=== PATIENT | female | born 1950 | race Caucasian/White ===

== ENCOUNTER → 2016-10-17 | Outpatient (CLI) | payer OTHER ==
--- NOTE | 2016-10-17 23:00 | US ---
Transabdominal and Transvaginal Pelvic Ultrasound History: 66-year-old with left adnexal mass, history of metastatic colon cancer. Comparison: Pelvic ultrasound July 04, 2016. Findings: Transabdominal: The uterus is poorly visualized. The bladder is normal. Transvaginal: The retroverted uterus measures 5.7 x 3.9 x 2.5 cm. An echogenic structure in the endom etrium measuring 6 x 3 x 4 mm suggesting a polyp previously measured 8 x 5 x 5 mm. There is minimal f luid in the neutral cavity adjacent to the structure. And a complex mixed cystic and solid septated l eft adnexal mass is again noted, measuring 8.6 x 7.6 x 5.5 cm, previously 8.9 x 7.9 by 5. centimeters in The right ovary measures 1.6 x 0.8 x 1.3 cm. No adnexal masses are identified. Normal arterial b lood flow is documented to the ovaries by Doppler ultrasound. There is a small volume of free fluid. Impression: 1. No significant change in size of a suspicious complex left adnexal mass. Malignancy cannot be excl uded. 2. Minimal decrease in size of a possible endometrial polyp. Message left today at 1252 hours.
== END ==
LOC: BRMIMAGING 11:04
DX: R19.09 Other intra-abdominal and pelvic swelling, mass and lump (principal); Z85.038 Personal history of other malignant neoplasm of large intestine
CPT/HCPCS: 76856-PO

== ENCOUNTER 2016-11-02 02:09 | Inpatient (IN) | payer OTHER ==
--- NOTE | 2016-11-02 02:25 | EDPHY ---
HPI/HX/ROS/PE/MDM Narrative: Chief complaint: Abdominal pain, nausea and vomiting HPI: 66-year-old woman with a past medical history of colon cancer, 1st diagnosed in August 2014. She had her tumor resected that time and had chemotherapy. The cancer return within a month. She has been on chemotherapy since that time. She is currently under the care of Dr. Isbell [facility]. Last chemo was a week ago. She does have a pump that delivers 5 FU of until last Monday. Yesterday evening at about 7 o'clock in the evening she started developing abdominal pain with some nausea and vomiting. Patient states she never gets pain nausea or vomiting associated with her symptoms. Denies any fevers or chills. No chest pain or shortness of breath. No hematemesis. She has had several episodes of vomiting here. She did state that she had a bowel movement of diarrhea about an hour ago. She does have chronic diarrhea with her chemotherapy. ROS: 10 point Review of Systems is negative except as noted in the HPI. Physical exam: Gen: Awake, Alert, No Distress HEENT: Nose: no rhinorrhea Eyes: PERRLA, EOMI Mouth: Moist mucosa Neck: Supple, no JVD Chest: nontender, lungs clear to auscultation Heart: S1, S2 normal, no murmur Abd: Soft, bowel sounds are hypoactive, diffuse left lower and right-sided abdominal tenderness., no guarding, large laparotomy scar Back: no CVA tenderness, no midline tenderness Ext: no edema, non-tender Skin: no rash Neuro: CN II-XII intact, Sensation grossly intact, Strength 5/5 in bilateral upper and lower extremities ED Course: CT scan of the abdomen pelvis with IV contrast as interpreted by Dr. Ozzie West, there is ascites, there is multiple hepatic lesions, hydropic gallbladder, there is what appears to be mucinous tumors in the pelvis. There is a dilated proximal duodenum just before the SMA and the aorta with decompressed distally consistent with a non high-grade bowel obstruction. Patient is noted to be hypertensive. She has been given IV analgesia and antiemetics with some improvement. Patient states that she-has a blood pressure that waxes and wanes and this is not uncommon. CT results noted. Blood work noted. I have discussed with , hospitalist. She will admit to her service for further evaluation. I have also discussed with Dr. Preciado, general surgery who will be happy to consult on the case. NG tube has been ordered. MDM: 66-year-old woman currently being treated for stage IV colon cancer presenting with abdominal pain nausea vomiting which is very atypical for her. She has significant risk factors for possible bowel obstruction. Will do blood work, CT scan of abdomen pelvis with IV contrast, antiemetics, fluids, and analgesia. - Data Points Laboratory Results: Laboratory Results 11/02/16 02:30 11/02/16 02:30 11/02/16 11/02/16 03:39 02:30 WBC 4.24 10^3/uL (3.80-9.50) RBC 4.33 10^6/uL (4.18-5.33) Hgb 14.0 g/dL (12.6-16.3) Hct 41.3 % (38.0-47.0) MCV 95.4 fL (81.5-99.8) MCH 32.3 pg (27.9-34.1) MCHC 33.9 g/dL (32.4-36.7) RDW 13.1 % (11.5-15.2) Plt Count 125 L 10^3/uL (150-400) MPV 9.3 fL (8.7-11.7) Neut % (Auto) 73.1 % (39.3-74.2) Lymph % (Auto) 19.6 % (15.0-45.0) [place] % (Auto) 3.5 L % (4.5-13.0) Eos % (Auto) 1.9 % (0.6-7.6) Baso % (Auto) 0.7 % (0.3-1.7) Nucleat RBC Rel Count 0.0 % (0.0-0.2) Absolute Neuts (auto) 3.10 10^3/uL (1.70-6.50) Absolute Lymphs (auto) 0.83 L 10^3/uL (1.00-3.00) Absolute Monos (auto) 0.15 L 10^3/uL (0.30-0.80) Absolute Eos (auto) 0.08 10^3/uL (0.03-0.40) Absolute Basos (auto) 0.03 10^3/uL (0.02-0.10) Absolute Nucleated RBC 0.00 10^3/uL (0-0.01) Immature Gran % 1.2 H % (0.0-1.1) Immature Gran # 0.05 10^3/uL (0.00-0.10) Sodium 142 mEq/L (134-144) Potassium 3.6 mEq/L (3.5-5.2) Chloride 111 H mEq/L (97-110) Carbon Dioxide 25 mEq/l (22-31) Anion Gap 6 mEq/L (8-16) BUN 14 mg/dL (7-23) Creatinine 1.1 H mg/dL (0.6-1.0) Estimated GFR 50 Glucose 125 H mg/dL (70-100) Calcium 8.7 mg/dL (8.5-10.4) Total Bilirubin 1.0 mg/dL (0.1-1.4) Conjugated Bilirubin 0.3 mg/dL (0.0-0.5) Unconjugated Bilirubin 0.7 mg/dL (0.0-1.1) AST 42 IU/L (14-46) ALT 87 H IU/L (9-52) Alkaline Phosphatase 104 IU/L (38-126) Total Protein 5.6 L g/dL (6.3-8.2) Albumin 3.2 L g/dL (3.5-5.0) Lipase 55.0 IU/L (23-300) Urine Color Pending Urine Appearance Pending Urine pH Pending Ur Specific [place] Pending Urine Protein Pending Urine Ketones Pending Urine Blood Pending Urine Nitrate Pending Urine Bilirubin Pending Urine Urobilinogen Pending Ur Leukocyte Esterase Pending Urine Glucose Pending Medications Given: Discontinued Medications Sodium Chloride (Ns) 1,000 mls @ 0 mls/hr IV ONCE ONE PRN Reason: Wide Open Stop: 11/02/16 02:38 Last Admin: 11/02/16 02:51 Dose: 1,000 mls Morphine Sulfate (Morphine) 4 mg IVP ONCE ONE Stop: 11/02/16 02:38 Last Admin: 11/02/16 02:51 Dose: 4 mg Ondansetron HCl (Zofran) 4 mg IVP EDNOW ONE Stop: 11/02/16 02:38 Last Admin: 11/02/16 02:51 Dose: 4 mg General Initial Vital Signs: Initial Vital Signs Temperature (C) 36.8 C 11/02/16 02:15 Heart Rate 75 11/02/16 02:15 Respiratory Rate 20 11/02/16 02:15 Blood Pressure 218/127 H 11/02/16 02:15 O2 Sat (%) 96 11/02/16 02:15 O2 Delivery Mode Room Air Allergies/Adverse Reactions: No Known Allergies Allergy (Unverified 11/02/16 02:13) Home Medications: Medication Instructions Recorded Gabapentin 11/02/16 Lisinopril 11/02/16 Potassium 11/02/16 Departure - Departure Disposition: [facility] Inpatient Acute Clinical Impression: Intestinal obstruction Condition: Fair
[2016-11-02] MEDS ORDERED: NS 1,000 ML IV ONE (02:37)
[2016-11-02] MEDS ORDERED: ONDANSETRON 4 MG/2 ML VIAL IVP ONE (02:37)
[2016-11-02 02:43] LABS: % IMMATURE GRANULYOCYTES 1.2 % (0.0-1.1); ABSOLUTE IMMATURE GRANULOCYTES 0.05 10^3/uL (0.00-0.10); ADD DIFF? NO; ADD MORPH? NO; ADD SCAN? NO; ATYPICAL LYMPHOCYTE FLAG 0 (0-99); FRAGMENT RBC FLAG 0 (0-99); HEMATOCRIT 41.3 % (38.0-47.0); LEFT SHIFT FLG 20 (0-99); LIPEMIA HEMOLYSIS FLAG 90 (0-99); MEAN CELL HEMOGLOBIN 32.3 pg (27.9-34.1); MEAN CELL HEMOGLOBIN CONCENTR. 33.9 g/dL (32.4-36.7); MEAN CELL VOLUME 95.4 fL (81.5-99.8); MEAN PLATELET VOLUME 9.3 fL (8.7-11.7); PLATELET CLUMPS FLAG 20 (0-99); PLATELET COUNT 125 10^3/uL (150-400); RED BLOOD CELL COUNT 4.33 10^6/uL (4.18-5.33); RED CELL DISTRIBUTION WIDTH 13.1 % (11.5-15.2)
[2016-11-02] MEDS ORDERED: IOPAMIDOL (ISOVUE-300) 100 ML BTL IV ONE (02:46)
[2016-11-02 02:50] LABS: ALANINE AMINOTRANSFERASE 87 IU/L (9-52); ALBUMIN 3.2 g/dL (3.5-5.0); ALKALINE PHOSPHATASE 104 IU/L (38-126); ANION GAP 6 mEq/L (8-16); ASPARTATE AMINOTRANSFERASE 42 IU/L (14-46); BILIRUBIN-CONJUGATED 0.3 mg/dL (0.0-0.5); BILIRUBIN-UNCONJUGATED 0.7 mg/dL (0.0-1.1); CALCIUM 8.7 mg/dL (8.5-10.4); CARBON DIOXIDE 25 mEq/l (22-31); CHLORIDE 111 mEq/L (97-110); CREATININE 1.1 mg/dL (0.6-1.0); GLOMERULAR FILTRATION RATE 50; GLUCOSE 125 mg/dL (70-100); POTASSIUM 3.6 mEq/L (3.5-5.2); SODIUM 142 mEq/L (134-144); TOTAL PROTEIN 5.6 g/dL (6.3-8.2)
[2016-11-02] MEDS ORDERED: LIDOCAINE 2% JELLY 20 ML (UROJECT) ONE (03:48)
[2016-11-02] MEDS ORDERED: BENZOCAINE UNIT DOSE SPRAY HURRICAINE MM ONE ×2 (03:48→04:00)
[2016-11-02 03:58] LABS: COLOR PALE YELLOW; LEUKOCYTE ESTERASE,URINE NEGATIVE (NEGATIVE); NITRITE,URINE NEGATIVE (NEGATIVE)
[2016-11-02 04:06] LABS: MUCUS TRACE /lpf (NONE-1+)
[2016-11-02] MEDS ORDERED: ONDANSETRON 4 MG/2 ML VIAL IVP PRN (04:21)
[2016-11-02] MEDS ORDERED: HYDROmorphONE/DILAUDID 1 MG/ML SYR IVP PRN (04:21)
[2016-11-02] MEDS ORDERED: ONDANSETRON DISINTEGRATING 4 MG TAB PO PRN (04:21)
[2016-11-02] MEDS ORDERED: LORazepam 2 MG/ML INJ IVP PRN (04:21)
[2016-11-02] MEDS ORDERED: HYDROCODONE/APAP 5/325 TAB PO PRN (04:21)
[2016-11-02] MEDS ORDERED: NS 1,000 ML IV SCH (04:30)
--- NOTE | 2016-11-02 05:08 | PDGENHP ---
History and Physical - Chief Complaint abdominal pain, n/v - History of Present Illness Patient is a 66-year-old female with history of stage IV adenocarcinoma of the colon and hypertension who presents to the ED complaining of abdominal pain nausea vomiting. Patient states symptoms started with moderately severe epigastric pain at around 7:00 p.m. She also began developing nausea who had several episodes of vomiting initially nonbilious /nonbloody, but after several episodes (>6) she also noticed streaks of bright red blood in the vomitus. Patient recently completed her scheduled chemotherapy infusion session on 10/28 and reports she never previously had a n/v reaction to chemotherapy, she usually experiences moderate/severe diarrhea (>7 BMs daily) for the first week after completion of the infusion. She does report having several BMs throughout the day, most recently an hour prior to presentation to the ED. She denies any other symptoms, denies associated fevers/chills, cough, shortness of breath, chest pain, palpitations or urinary symptoms. On arrival to the ED, patient was afebrile, but significantly hypertensive, actively vomiting (nonbloody). Labs were largely unremarkable, mildly elevated creatinine. CT abd/pelvis was obtained and revealed dilated small bowel with suspected partial bowel obstruction. She was given pain control, NGT was placed and she was admitted to the hospitalist service for further management. History Information - Allergies/Home Medication List Allergies/Adverse Reactions: No Known Allergies Allergy (Unverified 11/02/16 02:13) Home Medications: Gabapentin 11/02/16 [Last Taken Unknown] Lisinopril 11/02/16 [Last Taken Unknown] Potassium 11/02/16 [Last Taken Unknown] I have personally reviewed and updated: family history, medical history, social history, surgical history - Past Medical History Additional medical history: adenocarcinoma of the colon, stage IV s/p partial bowel resection and multiple varied chemotherapy regimens, most recently 5-FU (? ) infusions q3 weeks. HTN - Surgical History Additional surgical history: partial large colon resection. several ex-laps, once for intraabdominal chemotherapy - Family History Additional family history: F: CAD, brain aneurysm - Social History Smoking Status: Never smoked Alcohol Use: None Drug Use: None Additional social history: Patient lives with her son and daughter in law. Is independent in all ADLs. Review of Systems ROS: 10pt was reviewed & negative except for what was stated in HPI & below Physical Exam Temp Pulse Resp BP Pulse Ox 36.8 C 73 16 208/108 H 93 11/02/16 02:15 11/02/16 03:15 11/02/16 03:15 11/02/16 03:15 11/02/16 03:15 Constitutional: no apparent distress, not in pain, chronically ill appearing Eyes: PERRL, anicteric sclera, EOMI Ears, Nose, Mouth, Throat: hearing normal, ears appear normal, no oral mucosal ulcers, dry mucous membranes Cardiovascular: regular rate and rhythym, no murmur, rub, or gallop, pulses symmetric bilaterally, No JVD, No edema Peripheral Pulses: 2+: dorsalis-pedis (R), dorsalis-pedis (L) Respiratory: no respiratory distress, no rales or rhonchi, clear to auscultation Gastrointestinal: normoactive bowel sounds, soft, non-tender abdomen, no palpable masses, distension (mildly distended; old surgical incision scars) Genitourinary: no bladder fullness, no bladder tenderness Skin: warm, normal color, no rashes or abrasions, no fluctuance, No mottled Musculoskeletal: full muscle strength, no muscle tenderness, normal joint ROM, no joint effusions Neurologic: AAOx3, sensation intact bilaterally, CN II-XII Intact, No weakness, No numbness Psychiatric: interacting appropriately, not anxious, not encephalopathic, thought process linear Lab Data & Imaging Review 11/02/16 02:30 11/02/16 02:30 WBC 4.24 10^3/uL (3.80-9.50) 11/02/16 02:30 RBC 4.33 10^6/uL (4.18-5.33) 11/02/16 02:30 Hgb 14.0 g/dL (12.6-16.3) 11/02/16 02:30 Hct 41.3 % (38.0-47.0) 11/02/16 02:30 MCV 95.4 fL (81.5-99.8) 11/02/16 02:30 MCH 32.3 pg (27.9-34.1) 11/02/16 02:30 MCHC 33.9 g/dL (32.4-36.7) 11/02/16 02:30 RDW 13.1 % (11.5-15.2) 11/02/16 02:30 Plt Count 125 10^3/uL (150-400) L 11/02/16 02:30 MPV 9.3 fL (8.7-11.7) 11/02/16 02:30 Neut % (Auto) 73.1 % (39.3-74.2) 11/02/16 02:30 Lymph % (Auto) 19.6 % (15.0-45.0) 11/02/16 02:30 [place] % (Auto) 3.5 % (4.5-13.0) L 11/02/16 02:30 Eos % (Auto) 1.9 % (0.6-7.6) 11/02/16 02:30 Baso % (Auto) 0.7 % (0.3-1.7) 11/02/16 02:30 Nucleat RBC Rel Count 0.0 % (0.0-0.2) 11/02/16 02:30 Absolute Neuts (auto) 3.10 10^3/uL (1.70-6.50) 11/02/16 02:30 Absolute Lymphs (auto) 0.83 10^3/uL (1.00-3.00) L 11/02/16 02:30 Absolute Monos (auto) 0.15 10^3/uL (0.30-0.80) L 11/02/16 02:30 Absolute Eos (auto) 0.08 10^3/uL (0.03-0.40) 11/02/16 02:30 Absolute Basos (auto) 0.03 10^3/uL (0.02-0.10) 11/02/16 02:30 Absolute Nucleated RBC 0.00 10^3/uL (0-0.01) 11/02/16 02:30 Immature Gran % 1.2 % (0.0-1.1) H 11/02/16 02:30 Immature Gran # 0.05 10^3/uL (0.00-0.10) 11/02/16 02:30 Sodium 142 mEq/L (134-144) 11/02/16 02:30 Potassium 3.6 mEq/L (3.5-5.2) 11/02/16 02:30 Chloride 111 mEq/L (97-110) H 11/02/16 02:30 Carbon Dioxide 25 mEq/l (22-31) 11/02/16 02:30 Anion Gap 6 mEq/L (8-16) 11/02/16 02:30 BUN 14 mg/dL (7-23) 11/02/16 02:30 Creatinine 1.1 mg/dL (0.6-1.0) H 11/02/16 02:30 Estimated GFR 50 11/02/16 02:30 Glucose 125 mg/dL (70-100) H 11/02/16 02:30 Calcium 8.7 mg/dL (8.5-10.4) 11/02/16 02:30 Total Bilirubin 1.0 mg/dL (0.1-1.4) 11/02/16 02:30 Conjugated Bilirubin 0.3 mg/dL (0.0-0.5) 11/02/16 02:30 Unconjugated Bilirubin 0.7 mg/dL (0.0-1.1) 11/02/16 02:30 AST 42 IU/L (14-46) 11/02/16 02:30 ALT 87 IU/L (9-52) H 11/02/16 02:30 Alkaline Phosphatase 104 IU/L (38-126) 11/02/16 02:30 Total Protein 5.6 g/dL (6.3-8.2) L 11/02/16 02:30 Albumin 3.2 g/dL (3.5-5.0) L 11/02/16 02:30 Lipase 55.0 IU/L (23-300) 11/02/16 02:30 Urine Color PALE YELLOW 11/02/16 03:39 Urine Appearance CLEAR 11/02/16 03:39 Urine pH 5.0 (5.0-7.5) 11/02/16 03:39 Ur Specific [place] 1.019 (1.002-1.030) 11/02/16 03:39 Urine Protein 2+ (NEGATIVE) H 11/02/16 03:39 Urine Ketones NEGATIVE (NEGATIVE) 11/02/16 03:39 Urine Blood 1+ (NEGATIVE) H 11/02/16 03:39 Urine Nitrate NEGATIVE (NEGATIVE) 11/02/16 03:39 Urine Bilirubin NEGATIVE (NEGATIVE) 11/02/16 03:39 Urine Urobilinogen NEGATIVE EU (0.2-1.0) 11/02/16 03:39 Ur Leukocyte Esterase NEGATIVE (NEGATIVE) 11/02/16 03:39 Urine RBC 1-3 /hpf (0-3) 11/02/16 03:39 Urine WBC 1-3 /hpf (0-3) 11/02/16 03:39 Ur Epithelial Cells TRACE /lpf (NONE-1+) 11/02/16 03:39 Urine Mucus TRACE /lpf (NONE-1+) 11/02/16 03:39 Urine Glucose 1+ (NEGATIVE) H 11/02/16 03:39 Visualized and Interpreted imaging results: Yes Interpretation: CT abd/pelvis: dilated loops of small bowel, consistent with partial bowel obstruction; ascites, contracted GB Assessment & Plan Assessment: Patient is a 66-year-old female with history of stage IV colon CA currently undergoing chemotherapy presents with symptoms of epigastric abdominal pain, nausea and vomiting. ED workup reveals acute partial bowel obstruction. Plan: # nausea/vomiting/abdominal pain Likely related to CT findings of partial bowel obstruction. LFTs and lipase were largely within normal limits, CT does not reveal any GB pathology. Patient also has chronic diarrhea related to her chemotherapy regimen and had a BM just prior to arrival to the ED, indicating complete obstruction is unlikely. Will continue symptomatic treatment, NGT decompression and f/u surgery consult. # Hypertensive urgency Patient reports recent labile hypertensive episodes. On arrival to the ED, patient was in a significant amount of pain and vomiting, which likely exacerbated her HTN. Will attempt to control her abdominal symptoms, confirm her home meds and give hydralazine prn. # thrombocytopenia Plts 125 on presentation. She did report one episode of bright red blood in her vomitus prior to arrival, however, has not had any recurrence of this. Will place on PPI and monitor plts, h/h. # dispo: admit to inpatient service for likely > 2 [place] stay for management of partial bowel obstruction Gen: NPO DVT ppx: SCDs Full code
[2016-11-02] MEDS: hydrALAZINE 20 MG/ML VIAL IVP PRN (05:52)
[2016-11-02] MEDS: amLODIPine BESYLATE 5 MG TAB PO SCH ×2 (06:46→08:38)
--- NOTE | 2016-11-02 08:30 | CT ---
CT Abdomen and Pelvis With Intravenous Contrast Reason for Examination: Abdominal pain and symptomatology suggestive of bowel obstruction in a 66-year-old female with a history of metastatic colon cancer. Technique: A spiral acquisition was performed through the abdomen and pelvis following intravenous administration of 80 mL of Isovue-300. Axial images are obtained at 5 mm intervals with reformations performed at 1.5 mm thickness. Sagittal and coronal reformations are performed and the examination is reviewed on the workstation at multiple window and level settings. Dose reduction techniques are employed. Findings: Abdomen: The lung bases are clear. Multiple scattered low-attenuation areas are noted within the liver which are too small to fully characterize. Comparison with previous CTs, presumably performed at [facility], would be helpful for further characterization of these indeterminate lesions. There is early intrahepatic biliary ductal dilatation. The gallbladder is hydropic measuring 9 cm in dimension. A single gallstone is seen within the lumen of the gallbladder. The kidneys perfuse symmetrically. A simple cyst is seen in the mid pole of the right kidney. There is no obstructive uropathy. Upper abdominal ascites is seen. The spleen appears normal. The duodenum is dilated to the level where it passes between the aorta and the superior mesenteric artery suggesting an element of external compression. Additionally, there is dilatation of the colon throughout the abdomen and into the upper pelvis. There is a small anterior abdominal wall hernia containing intraabdominal fat. Pelvis: There is heterogeneous attenuation as well as ascites in the pelvis. Rounded areas of heterogeneous attenuation and rim enhancement are seen in the pelvis, one measuring 6 x 5 cm and other smaller masses seen consistent with metastatic implants. This would correlate with findings on pelvic ultrasound from October 17, 2016. These pelvic masses may result in an element of compression on the sigmoid colon and produce a partial bowel obstruction. No free air is seen. No aggressive osseous lesions are seen. Impression: 1. 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 Comparison with previous studies from [facility] will be obtained and an addendum report issued. 2. Indeterminate hepatic lesions. 3. Early intrahepatic biliary ductal dilatation in association with a hydropic gallbladder. 4. Ascites. 5. See above report for additional findings. A preliminary report was called to the Emergency Department at 0335 hours. The final interpretation is concordant withe preliminary reading. POS99 MTDD
[2016-11-02] MEDS: PANTOPRAZOLE SODIUM 40 MG in NS 100 ML IV SCH ×2 (08:38→20:52)
--- NOTE | 2016-11-02 10:57 | GCON ---
[f rep st] CONSULTATION DATE OF CONSULTATION: 11/02/2016 CHIEF COMPLAINT: Small bowel obstruction. REQUESTING PHYSICIAN: Dr. Severo Hsieh. HISTORY OF PRESENT ILLNESS: Noemi Shah is a 66-year-old woman, who has been diagnosed with stage IV colon cancer. She originally had 2 surgeries in [place]. She has been on chemotherapy at [facility] under the treatment of Dr. Isbell. She is on Irinotecan and is also on a pump. She developed abdominal pain around 7:00 p.m. on November 01, 2016, and then had nonbilious emesis. She does not usually experience nausea and vomiting with her chemotherapy agents. She does not have any sick contacts. A CT scan was obtained in the ED which showed an enlarged gallbladder, dilated duodenum as well as a dilated colon. An NG was placed with return. PAST MEDICAL HISTORY: Hypertension, colon cancer. PAST SURGICAL HISTORY: Two surgeries performed in [place] including a colectomy. FAMILY HISTORY: Significant for coronary artery disease and brain aneurysm. SOCIAL HISTORY: She lives with her son and [id number]. She denies tobacco , alcohol or illegal drug use. REVIEW OF SYSTEMS: Nausea, vomiting. Around chemotherapy, she usually has looser bowel movements. She does have some pain with talking at present. Otherwise, 10 point review of systems negative. PHYSICAL EXAMINATION: 36.6, 96, 205/117, 14, 96% room air. GENERAL: A pleasant, thin woman, sitting up in bed. Appears slightly weak. HEENT: NG tube in left naris with blood around the tape. There is clear fluid in the canister. Normocephalic. No gross hearing deficits. Mucous membranes dry. Pupils equal and round. LUNGS: Clear to auscultation bilaterally. No increased work of breathing. ABDOMEN: Bowel sounds are present. She is soft. She is mildly tender. She has a large well-healed midline scar. MUSCULOSKELETAL: Normal nails. Results reviewed. Per HPI. IMPRESSION AND PLAN: Noemi Shah is a 66-year-old woman with stage IV colon cancer. She reports that 2 weeks ago, her scan was improving. She is admitted for abdominal pain, nausea, vomiting. She was passing gas earlier today, but is not sure if she has passed any since 1:00 a.m. Her abdomen is soft, and she is currently feeling better. Her liver function tests are normal, In terms of her enlarged gallbladder, I think that is fine to observe that for now. She does have a dilated duodenum with possible constriction by the SMA. I am hopeful that she does not have SMA syndrome and this is more prominent due to her illness. Her colon has a lot of stool in it and there is a dilatation proximally. At this point, I think it is appropriate for hydration, getting her blood pressure under control, and doing serial abdominal exams. If her clinical course worsens, then she may need to go to the operating room. However , at this point, I am hopeful that she will be able to avoid this. /[id number]/MODL MTDD
[2016-11-02] MEDS: ACETAMINOPHEN 325 MG TAB PO PRN ×2 (15:03→23:03)
--- NOTE | 2016-11-02 15:21 | HOSPPROG ---
Hospitalist Progress Note Assessment/Plan: Patient is a 66-year-old female with history of stage IV colon CA currently undergoing chemotherapy presents with symptoms of epigastric abdominal pain, nausea and vomiting. ED workup reveals acute partial bowel obstruction. Plan: # nausea/vomiting/abdominal pain -surgery consult reviewed -cont conservative treatment # Hypertensive urgency (improving) -cont home meds by mouth -cont hydralazine prn as ordered #mild HOLLINS -monitor and control BP # thrombocytopenia Plts 125 on presentation. She did report one episode of bright red blood in her vomitus prior to arrival, however, has not had any recurrence of this. Will place on PPI and monitor plts, h/h. # dispo: admit to inpatient service for likely > 2 [place] stay for management of partial bowel obstruction Gen: NPO DVT ppx: SCDs Full code Subjective: improved abd pain. no chest pain. mild 3/10 headache Objective: Vital Signs Temp Pulse Resp BP Pulse Ox 36.8 C 85 16 170/101 H 96 11/02/16 14:57 11/02/16 14:57 11/02/16 14:57 11/02/16 14:57 11/02/16 14:57 11/01/16 11/02/16 11/03/16 05:59 05:59 05:59 Intake Total 1150 Output Total 25 600 Balance 1125 -600 ICD10 Worksheet Patient Problems: Problems Problem Status Diagnosed Bowel obstruction Acute
[2016-11-03] MEDS: hydrALAZINE 20 MG/ML VIAL IVP PRN (06:36)
[2016-11-03 07:56] VITALS: RESP 18
[2016-11-03] MEDS: amLODIPine BESYLATE 5 MG TAB PO SCH (09:41)
[2016-11-03] MEDS: LISINOPRIL 5 MG TAB PO SCH (09:41)
[2016-11-03] MEDS: PANTOPRAZOLE SODIUM 40 MG in NS 100 ML IV SCH ×2 (09:42→21:09)
[2016-11-03] MEDS: ACETAMINOPHEN 325 MG TAB PO PRN ×2 (10:46→23:11)
--- NOTE | 2016-11-03 10:52 | GCON ---
[f rep st] CONSULTATION ONCOLOGY CONSULTATION NOTE DATE OF CONSULTATION: 11/02/2016 REASON FOR CONSULTATION: Metastatic colorectal carcinoma. HISTORY OF PRESENT ILLNESS: The patient is a pleasant 66-year-old female, who is followed by my part ner, Dr. Isbell. She was diagnosed with stage IVB colorectal carcinoma in August of 2014. She rec eived her initial treatment in [place]. The patient presented initially with fatigue and iron-deficienc y anemia. Colonoscopy revealed a tumor involving the cecum. The patient underwent a partial right-marlon ed colectomy on August 20, 2014. Final pathology revealed a 5.5 cm tumor with direct extension into terminal ilium. Five of 7 lymph nodes were involved and there was small volume omental metastasis no monica. The patient was treated initially with FOLFOX bevacizumab from September 2014 through March of 2015. Giselle gurrola received 12 cycles total. Following this treatment, she was given HIPEC (heated intraperitoneal rahul motherapy) in May of 2015. Her CEA began to rise. A restaging PET scan done in November of 2015 showed recurrent disease in the left pelvis with additional implants noted in the right pelvis and omentum. She moved to [place]. Giselle gurrola was started on FOLFIRI/Zaltrap. She began this therapy on December 10, 2015 and has been continued jonathon r since. Recently, she had a plateau in her serum CEA level. A restaging CAT scan done on October h revealed evidence of improvement in her right peritoneal implant consistent with continued disease response. She has a known macrolobulated metastasis involving the left ovary, which is somewhat small er than previously noted. The patient developed acute onset abdominal pain last evening. This was mostly involving the right lo wer quadrant. This was associated with nausea. She did move her bowels and had multiple episodes of d iarrhea. She denies any blood in her stool. She called through the paging service and was instructed to proceed to the emergency department. In the emergency department, a repeat CT scan was done which revealed metastatic implants throughout the pelvis with partial obstruction of the sigmoid colon. The re were indeterminate hepatic lesions noted. The patient was seen by Dr. Nancy Preciado of General Surgery. Conservative management has been recommen ded. An NG tube has been placed. The patient's abdominal pain has improved dramatically. She denies a ny nausea or pain at the current time. PAST MEDICAL HISTORY: Metastatic colorectal carcinoma as outlined above. PAST SURGICAL HISTORY: Partial colectomy, as outlined above. FAMILY MEDICAL HISTORY: Patient reports her father had coronary artery disease. She denies family hi story of malignancy. SOCIAL HISTORY: The patient is a nonsmoker. She does not drink alcohol. She lives with her son and d [id number] in [place]. REVIEW OF SYSTEMS: As outlined above. Additionally, patient denies fevers or chills. No chest pain, cough. She reports that she had a small amount of blood in her emesis a few days ago. This has not re turned and had not occurred previously. Abdominal symptoms as outlined above. Denies extremity pain o r swelling. Denies skin rash. PHYSICAL EXAM: GENERAL: Patient is lying comfortably in bed, in no acute distress. HEENT: Pupils equ al. Sclerae are nonicteric. Conjunctivae normal. HEART: Regular without murmur. LUNGS: Clear bilatera lly. There is a Mediport in the right upper chest wall. Site is clean without evidence of infection. ABDOMEN: Not distended. There is no reproducible area of tenderness on exam currently. Bowel sounds a re hypoactive, but present. Patient has what appears to be a small palpable tumor implant in the uppe rmost portion of her midline abdominal incision. EXTREMITIES: No extremity swelling or edema. SKIN: N o visible skin rash. NEUROLOGIC: She is alert, oriented, and appropriate. IMAGING: CT result as per HPI. LABORATORY STUDIES: White count 4.2, hemoglobin 14.0, platelet count 125,000. Sodium 142, potassium 3.6, chloride 111, bicarb 25, BUN 14, creatinine 1.1. Total bilirubin is 1.0. IMPRESSION: 1. Metastatic colorectal carcinoma. 2. Malignant bowel obstruction, secondary to #1. ASSESSMENT AND PLAN: The patient is a pleasant 66-year-old female with a history of metastatic color ectal carcinoma, who has recently been treated with FOLFIRI and Zaltrap. She presents with a malignan t small-bowel obstruction. She appears to be responding to conservative management. NG tube has been place and her symptoms have improved dramatically. I am hopeful that her malignant bowel obstruction will resolve with further c onservative management and she will not require operative intervention. I greatly appreciate Dr. Odessa delong's assistance in her case. I suspect the patient's malignant bowel obstruction is due to disease progression based on the recent plateau at her CEA. A October CT did show some areas of subtle improvement; however, given the devel opment of obstruction it may be reasonable to consider switching her therapy. We discussed this today . She did not clearly progress on FOLFOX therapy in the past and given that the patient has a KRAS mu tation, I would favor returning to FOLFOX as her next line of therapy. I will inform my partner, Dr. Isbell, of her admission. If her bowel obstruction does respond to conservative management, she could be discharged over the ne xt several days with office followup to initiate chemotherapy in the outpatient setting. Our service will continue to follow her closely during her hospital stay. Her questions were answered today. Total time for today's visit was approximately 50 minutes, of which greater than 50% was spent in cou nseling and care coordination. /[id number]/MODL
--- NOTE | 2016-11-03 12:36 | HOSPPROG ---
Hospitalist Progress Note Assessment/Plan: Patient is a 66-year-old female with history of stage IV colon CA currently undergoing chemotherapy presents with symptoms of epigastric abdominal pain, nausea and vomiting # acute partial bowel obstruction (improving) -start clear liquids -remove ngt -case discussed with Dr. Preciado who will see pt later today # Hypertensive urgency (improving) -cont home meds by mouth -cont hydralazine prn as ordered #mild HOLLINS -monitor and control BP # thrombocytopenia (no new labs) # dispo: cont inpatient service for likely > 2 [place] stay for management of partial bowel obstruction DVT ppx: will add lmwh Full code Subjective: no abd pain. bm this morning. wants to eat Objective: Vital Signs Temp Pulse Resp BP Pulse Ox 37.3 C 90 18 153/93 H 97 11/03/16 11:37 11/03/16 11:37 11/03/16 11:37 11/03/16 11:37 11/03/16 11:37 11/02/16 11/03/16 11/04/16 05:59 05:59 05:59 Intake Total 1150 1104 Output Total 25 1175 Balance 1125 -71 gen nad cv rrr pulm clear abd soft +bs no guard or rebound tenderness ext no edema ICD10 Worksheet Patient Problems: Problems Problem Status Diagnosed Bowel obstruction Acute
[2016-11-03] MEDS ORDERED: amLODIPine BESYLATE 5 MG TAB PO ONE (12:42)
--- NOTE | 2016-11-03 13:00 | SOAPPROG ---
CHRISTIANE Progress Note Assessment/Plan: Assessment: 1) Metastatic colon cancer 2) Malignant bowel obstruction (resolving with conservative management) Plan: Noemi is doing well. Her NG tube has been removed. She is tolerating a clear liquid diet. Her diet will be gradually advanced, and if she has no recurrent symptoms, I think that she could be discharged tomorrow. Plan outpatient Oncology followup with Dr. Isbell. Her questions were answered. 11/03/16 12:53 Subjective: Feels better. NG tube has been removed. Tolerating clear liquids. Denies nausea, abdominal pain or bloating. Had BM without pain or diarrhea. Objective: Vital Signs Temp Pulse Resp BP Pulse Ox 37.3 C 90 18 153/93 H 97 11/03/16 11:37 11/03/16 11:37 11/03/16 11:37 11/03/16 11:37 11/03/16 11:37 11/02/16 11/03/16 11/04/16 05:59 05:59 05:59 Intake Total 1150 1104 Output Total 25 1175 Balance 1125 -71 - Time Spent With Patient Time Spent With Patient: 20 minutes Physical Exam - Physical Exam General Appearance: alert, no apparent distress Abdomen: normal bowel sounds, non-tender, soft Neuro/Psych: alert, normal mood/affect ICD10 Worksheet Patient Problems: Problems Problem Status Diagnosed Bowel obstruction Acute
[2016-11-03] MEDS: ENOXAPARIN 40 MG/0.4 ML SYR SC SCH (13:30)
--- NOTE | 2016-11-03 17:25 | SOAPPROG ---
SOAP Progress Note Assessment/Plan: Assessment: 66 yo with colon cancer admitted for SBO. Now passing flatus, BM NG tube was removed SLOWLY advance diet Will hold off on abdominal x ray unless becomes symptomatic S: Feeling much improved O: Sitting up in bed, appears well BS present. Soft and non tender Plan: 11/03/16 17:22 Objective: Vital Signs Temp Pulse Resp BP Pulse Ox 36.8 C 86 18 149/91 H 96 11/03/16 16:25 11/03/16 16:25 11/03/16 16:25 11/03/16 16:25 11/03/16 16:25 11/02/16 11/03/16 11/04/16 05:59 05:59 05:59 Intake Total 1150 1104 350 Output Total 25 1175 Balance 1125 -71 350 ICD10 Worksheet Patient Problems: Problems Problem Status Diagnosed Bowel obstruction Acute
[2016-11-04 08:08] VITALS: BP 155/92; PULSE 73; TEMP 98.2; O2SAT 98
--- NOTE | 2016-11-04 08:50 | SOAPPROG ---
SOAP Progress Note Assessment/Plan: Assessment: 66 yo with colon cancer admitted for SBO. Now passing flatus, BM Regular diet Low fiber x 2 weeks Surgery will sign off. Call dr younger over the weekend if issues arrise S: Feeling much improved. flatus and bm O: Sitting up in bed, appears well BS present. Soft and non tender Plan: 11/03/16 17:22 11/04/16 08:48 Objective: Vital Signs Temp Pulse Resp BP Pulse Ox 36.8 C 73 18 155/92 H 98 11/04/16 08:05 11/04/16 08:05 11/04/16 08:05 11/04/16 08:05 11/04/16 08:05 11/03/16 11/04/16 11/05/16 05:59 05:59 05:59 Intake Total 1104 1400 Output Total 1175 Balance -71 1400 ICD10 Worksheet Patient Problems: Problems Problem Status Diagnosed Bowel obstruction Acute
[2016-11-04] MEDS: LISINOPRIL 5 MG TAB PO SCH (08:53)
[2016-11-04] MEDS: PANTOPRAZOLE SODIUM 40 MG in NS 100 ML IV SCH (08:53)
[2016-11-04] MEDS: ENOXAPARIN 40 MG/0.4 ML SYR SC SCH ×2 (08:54→08:55)
--- NOTE | 2016-11-04 12:36 | GDS ---
[f rep st] DISCHARGE SUMMARY DISCHARGE DIAGNOSES: 1. Stage IV colon cancer. 2. Acute bowel obstruction, resolved. 3. Hypertensive urgency, resolved. CONSULTANTS: [facility], Dr. Weldon. General surgery, Dr. Preciado. HOSPITAL COURSE: 1. Small-bowel obstruction in the setting of stage IV adenocarcinoma of the colon: The patient was admitted to the hospital where an NG tube was placed and she was made n.p.o. status. Throughout her course, her abdominal pain improved and she began passing flatus and had a bowel movement on the morning of 11/03/2016. At that time, the NG tube was removed and she was started on a clear liquid diet. Over the past 24 hours, her symptoms have been resolving and she was able to tolerate a regular diet on the morning of discharge. The patient was seen by Dr. Preciado on the morning of 11/04/2016, who thought it was reasonable for her to go home with outpatient followup. 2. Hypertensive urgency: The patient presented to the hospital with a blood pressure of 218/127. She was treated with p.r.n. hydralazine and her home dose of amlodipine was increased from 5 mg to 10 mg. She was also continued at her home dose of lisinopril. On the day of discharge, her blood pressure is 155/92. PHYSICAL EXAM: VITAL SIGNS: On day of discharge, blood pressure 155/92, pulse 73, respiratory rate 18, O2 saturation 98% on room air. GENERAL: No acute distress. ABDOMEN: Soft. Normoactive bowel sounds. There is no guarding or rebound tenderness. There is no abdominal distention. PROCEDURES: Done this hospital stay: None. DISCHARGE MEDICATIONS: Please refer to discharge medication reconciliation in [facility] for full details. Below is a preliminary list. New medications on hospital discharge: Amlodipine was increased from 5 mg to 10 mg daily. All other home medications were continued at her usual home dosages. DISCHARGE INSTRUCTIONS: The patient will be discharged from the hospital where she should follow up with Dr. Isbell next week where she should have her blood pressure checked. If she continues to be hypertensive it would be reasonable to up titrate her lisinopril up to 10 or even 20 mg as indicated. The patient was also counseled on the symptoms of hypotension and should reduce her home dose of amlodipine down to 5 mg if her blood pressure is low. /[id number]/MODL MTDD
== END 2016-11-04 11:44 | disposition home or self-care (01) | DRG 389 ==
LOC: F1N 05:00
PROVIDERS: ADMIT Internal Medicine; ATTEND Family Medicine
PROC: 0D9670Z Drainage of Stomach with Drainage Device, Via Natural or Artificial Opening (ICD-10-PCS; principal; 2016-11-02)
DX: K56.60 Unspecified intestinal obstruction (principal); C18.9 Malignant neoplasm of colon, unspecified; I16.0 Hypertensive urgency
CPT/HCPCS: 96374; J0360; J1170; J1650; J2405; Q9967

== ENCOUNTER → 2017-02-05 | Outpatient (CLI) | payer OTHER ==
[~2017-02-05] MED LIST: GADOBUTROL 10 ML VIAL IVP ONE
== END ==
LOC: FIMAGING 10:55
PROVIDERS: ATTEND Internal Medicine Hematology & Oncology
DX: Z12.89 Encounter for screening for malignant neoplasm of other sites (principal); R94.02 Abnormal brain scan; J34.1 Cyst and mucocele of nose and nasal sinus; Z85.038 Personal history of other malignant neoplasm of large intestine
CPT/HCPCS: 70553; A9585

== ENCOUNTER 2017-12-16 20:45 | Observation (INO) | payer OTHER ==
--- NOTE | 2017-12-16 21:39 | EDPHY ---
HPI/HX/ROS/PE/MDM Narrative: CHIEF COMPLAINT: Stomach pain, nausea, vomiting HISTORY OF PRESENT ILLNESS: The patient is a 67 y/o female with a history of stage 4 colon cancer requiring multiple abdominal surgeries. Since yesterday she has had a decrease in appetite. Her last chemo treatment was 5 weeks ago, and they preformed an abdominopelvic CT prior to the chemo. Today she is complaining of sharp abdominal pain, onset 15:00, 7 hours ago. Since the pain began she has vomited twice. She is concerned that there is another abdominal blockage, as her symptoms are similar to her prior abdominal blockage. She has chronic bloating and fluid retention due to the cancer. Recently returned home from [place]. Followed by Dr. Isbell, oncologist. No fever, chills, chest pain, shortness of breath, palpitations, urinary complaints, headache, lightheadedness. REVIEW OF SYSTEMS: Aside from elements discussed in the HPI, a comprehensive 10-point review of systems was reviewed and is negative. PAST MEDICAL HISTORY: Stage 4 colon cancer, hypertension, abdominal blockage ( 2017), DVT SOCIAL HISTORY: Son at bedside, lives in [place], retired VITAL SIGNS: Reviewed by me GENERAL: Well-developed, well-nourished, resting comfortably in no respiratory distress. HEENT: Atraumatic. Eyes: No icterus, no injection. Mouth: moist mucous membranes. No erythema or lesions. Neck: supple with no adenopathy. LUNGS: Clear to auscultation bilaterally, no wheezes, rhonchi or rales. CARDIAC: Regular rate and rhythm, no rubs, murmurs or gallops. ABDOMEN: Distended abdomen, mildly tympanitic, soft, mild tenderness, bowel sounds normal. BACK: No CVA tenderness. EXTREMITIES: No trauma. No edema. Range of motion is normal throughout. NEURO: Alert and oriented, grossly nonfocal. SKIN: Warm and dry, no rash. PSYCHIATRIC: Normal mentation, no agitation. Portions of this note were transcribed by a medical technician assistant. I personally performed a history, physical exam, medical decision making, and confirmed accuracy of information the transcribed note. ED Course: The patient is a 67 y/o female with a history of stage 4 colon cancer requiring multiple abdominal surgeries and an abdominal blockage. On exam she has a distended abdomen with mild tenderness that is mildly tympanitic. Labs and abdominopelvic CT ordered. 1L IV NS, 4mg IV Zofran, and 75mcg IV Fentanyl administered. 2342: I spoke with radiologist regarding patient's AP CT. There is a partial small bowel obstruction. There is also worsening ascites and increased peritoneal metastasis. She will need to be admitted for this. 2347: Consulted with hospitalist service; Dr. Holm accepts admission of this patient. 2350: Reassessed patient and discussed imaging and laboratory findings. I have also discussed plan for admission, she is comfortable with this plan. Patient's course also discussed with Dr. Pablito Marino, general surgery, he will follow the patient in the hospital. MDM: After obtaining the patient's history and performing an examination, differential diagnosis considered included but was not limited to bowel obstruction, metastatic disease, ascites, spontaneous bacterial peritonitis, gastroenteritis. - Data Points Imaging Results: Imaging Impressions Abdomen CT 12/16/17 22:46 Impression: 1. Partial small bowel obstruction. Diffuse bowel wall thickening in the distal ileum which could be infectious, inflammatory, or ischemic. Fecalization of stool in the distal ileum proximal to the anastomosis to colon. 2. Ascites worsened from November 2016 and increased peritoneal metastasis. 3. Stable nonspecific hypodense lesions in the liver. 4. Cholelithiasis. Results called and discussed with Candace Coy MD at 12/16/2017 23:42. Imaging: Discussed imaging studies w/ signs cleaner Radiologist, I viewed and interpreted images myself Laboratory Results: Laboratory Results 12/16/17 22:00 12/16/17 22:00 12/16/17 12/16/17 22:00 22:00 WBC 8.37 10^3/uL 10^3/uL (3.80-9.50) RBC 3.92 10^6/uL L 10^6/uL (4.18-5.33) Hgb 12.4 g/dL L g/dL (12.6-16.3) Hct 35.4 % L % (38.0-47.0) MCV 90.3 fL fL (81.5-99.8) MCH 31.6 pg pg (27.9-34.1) MCHC 35.0 g/dL g/dL (32.4-36.7) RDW 12.3 % % (11.5-15.2) Plt Count 204 10^3/uL 10^3/uL (150-400) MPV 8.4 fL L fL (8.7-11.7) Neut % (Auto) 83.1 % H % (39.3-74.2) Lymph % (Auto) 9.1 % L % (15.0-45.0) [place] % (Auto) 5.6 % % (4.5-13.0) Eos % (Auto) 1.3 % % (0.6-7.6) Baso % (Auto) 0.4 % % (0.3-1.7) Nucleat RBC Rel Count 0.0 % % (0.0-0.2) Absolute Neuts (auto) 6.96 10^3/uL H 10^3/uL (1.70-6.50) Absolute Lymphs (auto) 0.76 10^3/uL L 10^3/uL (1.00-3.00) Absolute Monos (auto) 0.47 10^3/uL 10^3/uL (0.30-0.80) Absolute Eos (auto) 0.11 10^3/uL 10^3/uL (0.03-0.40) Absolute Basos (auto) 0.03 10^3/uL 10^3/uL (0.02-0.10) Absolute Nucleated RBC 0.00 10^3/uL 10^3/uL (0-0.01) Immature Gran % 0.5 % % (0.0-1.1) Immature Gran # 0.04 10^3/uL 10^3/uL (0.00-0.10) Sodium 139 mEq/L mEq/L (135-145) Potassium 4.3 mEq/L mEq/L (3.5-5.2) Chloride 104 mEq/L mEq/L (97-110) Carbon Dioxide 24 mEq/l mEq/l (22-31) Anion Gap 11 mEq/L mEq/L (8-16) BUN 22 mg/dL mg/dL (7-23) Creatinine 0.9 mg/dL mg/dL (0.6-1.0) Estimated GFR > 60 Glucose 95 mg/dL mg/dL (70-100) Calcium 9.4 mg/dL mg/dL (8.5-10.4) Total Bilirubin 0.7 mg/dL mg/dL (0.1-1.4) Conjugated Bilirubin 0.3 mg/dL mg/dL (0.0-0.5) Unconjugated Bilirubin 0.4 mg/dL mg/dL (0.0-1.1) AST 27 IU/L IU/L (14-46) ALT 45 IU/L IU/L (9-52) Alkaline Phosphatase 75 IU/L IU/L (38-126) Total Protein 5.6 g/dL L g/dL (6.3-8.2) Albumin 3.4 g/dL L g/dL (3.5-5.0) Lipase 137 IU/L IU/L (23-300) Medications Given: Discontinued Medications Fentanyl (Sublimaze) 75 mcg IVP EDNOW ONE Stop: 12/16/17 21:58 Last Admin: 12/16/17 22:05 Dose: 75 mcg Sodium Chloride (Ns) 1,000 mls @ 0 mls/hr IV ONCE ONE; Wide Open PRN Reason: Protocol Stop: 12/16/17 21:58 Last Admin: 12/16/17 22:02 Dose: 1,000 mls Ondansetron HCl (Zofran) 4 mg IVP EDNOW ONE Stop: 12/16/17 21:58 Last Admin: 12/16/17 22:03 Dose: 4 mg General Time Seen by Provider: 12/16/17 21:37 Initial Vital Signs: Initial Vital Signs Temperature (C) 36.7 C 12/16/17 21:01 Heart Rate 78 12/16/17 21:01 Respiratory Rate 16 12/16/17 21:01 Blood Pressure 112/80 12/16/17 21:01 O2 Sat (%) 99 12/16/17 21:01 O2 Delivery Mode Room Air Allergies/Adverse Reactions: No Known Allergies Allergy (Verified 12/16/17 21:00) Home Medications: Medication Instructions Recorded Gabapentin [Neurontin 300 MG (*)] 600 mg PO TID PRN 11/02/16 Departure - Departure Disposition: [facility] Acute Clinical Impression: Partial small bowel obstruction, Ascites, malignant Abdominal pain Qualifiers: Abdominal location: generalized Qualified Code(s): R10.84 - Generalized abdominal pain Condition: Fair Report Scribed for: Candace Coy Report Scribed by: Vani Chamberlain Date of Report: 12/16/17 Time of Report: 21:39
[2017-12-16] MEDS ORDERED: ONDANSETRON 4 MG/2 ML VIAL ONE (21:52)
[2017-12-16] MEDS ORDERED: fentaNYL 100 MCG/2 ML INJ ONE (21:53)
[2017-12-16] MEDS ORDERED: ONDANSETRON 4 MG/2 ML VIAL IVP ONE (21:57)
[2017-12-16] MEDS ORDERED: NS 1,000 ML IV ONE (21:57)
[2017-12-16] MEDS ORDERED: fentaNYL 100 MCG/2 ML INJ IVP ONE (21:57)
[2017-12-16 22:36] LABS: PLATELET COUNT 204 10^3/uL (150-400)
[2017-12-16] MEDS ORDERED: IOPAMIDOL (ISOVUE-300) 100 ML BTL ONE (23:08)
[2017-12-16] MEDS ORDERED: D5W 1/2 NS 1,000 ML IV SCH (23:45)
[2017-12-16] MEDS ORDERED: ONDANSETRON 4 MG/2 ML VIAL IVP PRN (23:47)
[2017-12-16] MEDS ORDERED: HYDROmorphone HCL/NS 0.5 MG/ML SYR IVP PRN (23:47)
[2017-12-16] MEDS ORDERED: ONDANSETRON DISINTEGRATING 4 MG TAB PO PRN (23:47)
[2017-12-16] MEDS ORDERED: PROMETHAZINE HCL 25 MG/ML INJ IVP PRN (23:47)
[2017-12-16] MEDS ORDERED: ACETAMINOPHEN 325 MG TAB PO PRN (23:47)
--- NOTE | 2017-12-17 03:17 | PDGENHP ---
History and Physical - Chief Complaint Abdominal pain - History of Present Illness 67 yo F w/ Stage IV colon adenocarcinoma and HTN presents with abdominal pain. Patient developed abdominal pain around 3 PM on day of admission. She noticed a few loose stools prior to this, but she states a loose consistency is normal for her. Over the course of the afternoon the pain worsened and she then developed vomiting. Her last chemotherapy was in November. She is planning to start oral chemotherapy in the near future. Of note, she was admitted in November of this year for a similar presentation. History Information - Allergies/Home Medication List Allergies/Adverse Reactions: No Known Allergies Allergy (Verified 12/16/17 21:00) Home Medications: Gabapentin [Neurontin 300 MG (*)] 600 mg PO TID PRN 11/02/16 [Last Taken 22:00] I have personally reviewed and updated: family history, medical history - Past Medical History Additional medical history: adenocarcinoma of the colon, stage IV s/p partial bowel resection and multiple varied chemotherapy regimens, most recently 5-FU (? ) infusions q3 weeks. HTN - Surgical History Additional surgical history: partial large colon resection. several ex-laps, once for intraabdominal chemotherapy - Family History Additional family history: F: CAD, brain aneurysm - Social History Smoking Status: Never smoked Additional social history: Patient lives with her son and daughter in law. Is independent in all ADLs. Review of Systems Review of Systems: ROS: 10pt was reviewed & negative except for what was stated in HPI & below Physical Exam Physical Exam: Temp Pulse Resp BP Pulse Ox 36.8 C 82 19 118/77 94 12/17/17 00:27 12/17/17 00:27 12/17/17 00:27 12/17/17 00:27 12/17/17 00:27 Constitutional: no apparent distress, uncomfortable Eyes: PERRL, EOMI Ears, Nose, Mouth, Throat: moist mucous membranes, no oral mucosal ulcers Cardiovascular: regular rate and rhythym, no murmur, rub, or gallop Respiratory: no respiratory distress, no rales or rhonchi Gastrointestinal: tenderness, distension, No guarding, No rebound Skin: warm, normal color Musculoskeletal: full muscle strength, no muscle tenderness Neurologic: AAOx3, CN II-XII Intact Psychiatric: interacting appropriately, not anxious Lab Data & Imaging Review 12/16/17 22:00 12/16/17 22:00 WBC 8.37 10^3/uL (3.80-9.50) 12/16/17 22:00 RBC 3.92 10^6/uL (4.18-5.33) L 12/16/17 22:00 Hgb 12.4 g/dL (12.6-16.3) L 12/16/17 22:00 Hct 35.4 % (38.0-47.0) L 12/16/17 22:00 MCV 90.3 fL (81.5-99.8) 12/16/17 22:00 MCH 31.6 pg (27.9-34.1) 12/16/17 22:00 MCHC 35.0 g/dL (32.4-36.7) 12/16/17 22:00 RDW 12.3 % (11.5-15.2) 12/16/17 22:00 Plt Count 204 10^3/uL (150-400) 12/16/17 22:00 MPV 8.4 fL (8.7-11.7) L 12/16/17 22:00 Neut % (Auto) 83.1 % (39.3-74.2) H 12/16/17 22:00 Lymph % (Auto) 9.1 % (15.0-45.0) L 12/16/17 22:00 [place] % (Auto) 5.6 % (4.5-13.0) 12/16/17 22:00 Eos % (Auto) 1.3 % (0.6-7.6) 12/16/17 22:00 Baso % (Auto) 0.4 % (0.3-1.7) 12/16/17 22:00 Nucleat RBC Rel Count 0.0 % (0.0-0.2) 12/16/17 22:00 Absolute Neuts (auto) 6.96 10^3/uL (1.70-6.50) H 12/16/17 22:00 Absolute Lymphs (auto) 0.76 10^3/uL (1.00-3.00) L 12/16/17 22:00 Absolute Monos (auto) 0.47 10^3/uL (0.30-0.80) 12/16/17 22:00 Absolute Eos (auto) 0.11 10^3/uL (0.03-0.40) 12/16/17 22:00 Absolute Basos (auto) 0.03 10^3/uL (0.02-0.10) 12/16/17 22:00 Absolute Nucleated RBC 0.00 10^3/uL (0-0.01) 12/16/17 22:00 Immature Gran % 0.5 % (0.0-1.1) 12/16/17 22:00 Immature Gran # 0.04 10^3/uL (0.00-0.10) 12/16/17 22:00 Sodium 139 mEq/L (135-145) 12/16/17 22:00 Potassium 4.3 mEq/L (3.5-5.2) 12/16/17 22:00 Chloride 104 mEq/L (97-110) 12/16/17 22:00 Carbon Dioxide 24 mEq/l (22-31) 12/16/17 22:00 Anion Gap 11 mEq/L (8-16) 12/16/17 22:00 BUN 22 mg/dL (7-23) 12/16/17 22:00 Creatinine 0.9 mg/dL (0.6-1.0) 12/16/17 22:00 Estimated GFR > 60 12/16/17 22:00 Glucose 95 mg/dL (70-100) 12/16/17 22:00 Calcium 9.4 mg/dL (8.5-10.4) 12/16/17 22:00 Total Bilirubin 0.7 mg/dL (0.1-1.4) 12/16/17 22:00 Conjugated Bilirubin 0.3 mg/dL (0.0-0.5) 12/16/17 22:00 Unconjugated Bilirubin 0.4 mg/dL (0.0-1.1) 12/16/17 22:00 AST 27 IU/L (14-46) 12/16/17 22:00 ALT 45 IU/L (9-52) 12/16/17 22:00 Alkaline Phosphatase 75 IU/L (38-126) 12/16/17 22:00 Total Protein 5.6 g/dL (6.3-8.2) L 12/16/17 22:00 Albumin 3.4 g/dL (3.5-5.0) L 12/16/17 22:00 Lipase 137 IU/L (23-300) 12/16/17 22:00 Imaging Review: Imaging Impressions Abdomen CT 12/16/17 22:46 Impression: 1. Partial small bowel obstruction. Diffuse bowel wall thickening in the distal ileum which could be infectious, inflammatory, or ischemic. Fecalization of stool in the distal ileum proximal to the anastomosis to colon. 2. Ascites worsened from November 2016 and increased peritoneal metastasis. 3. Stable nonspecific hypodense lesions in the liver. 4. Cholelithiasis. Results called and discussed with Candace Coy MD at 12/16/2017 23:42. Assessment & Plan Assessment: 67 yo F w/ hx of Stage IV colon adenocarcinoma presents with partial SBO. Plan: 1. SBO - Described as partial by radiology but no longer passing stool or flatus. Most likely 2/2 known malignancy and adhesions from prior surgery. Patient admitted with similar presentation one month ago, which resolved with conservative treatment. - Admit for observation - NGT placed - NPO, mIVF, pain control - Surgery service consulted, appreciate assistance - Will repeat abdominal XR in the AM for monitoring 2. Stage IV colon adenocarcinoma - Last chemo in November of this year, now planning for oral therapy. CT scan notable for ascites worsened from November 2016 and increased peritoneal metastasis. 3. HTN - Normotensive currently, needs med reconciliation. Diet - NPO, ADAT Code - Full Ppx - SCDs Dispo - Admit under observation status
[2017-12-17 04:54] VITALS: RESP 16
[2017-12-17 05:23] LABS: PLATELET COUNT 181 10^3/uL (150-400)
--- NOTE | 2017-12-17 05:36 | PDCONSULT ---
Motor Vehicle Technician Note: Chief complaint: Abdominal pain History of present illness: This 67-year-old woman with a longstanding history of colon cancer currently stopped Irinotecan and 5 FU Q 5weeks to start another regimen for stage IV disease. The patient had previous colon resection in [facility]. She is living in [place] with 1 of her children their spouse. Patient has history of hypertension and now or stent/persistent colon cancer She presents today with increasing abdominal pain nausea and vomiting. She has not had a bowel movement. Her last bowel obstruction was 1 year ago where she was treated conservatively. CT scan of the abdomen and pelvis is consistent with worsening disease including ascites peritoneal metastasis that was not seen last year. Past medical history colon cancer hypertension Past surgical history colon resection, resection of dermoid cyst Allergies no known drug allergies Medications at home include gabapentin and chemotherapy at [facility] Family history noncontributory Social history:denies smoking Review of systems significant for ongoing chemotherapy treatment with mild side effects including: fatigue and bloating, increasing CEA all others are reviewed and are negative Alert oriented mild distress due to abdominal discomfort Anicteric sclera, pupils 3 mm reactive extraocular motions intact No gross neurologic deficits Regular rate and rhythm, S1-S2 no murmurs Clear to auscultation, no wheezes or rales. right chest post site c/d Abdomen soft mildly distended positive fluid wave well-healed midline incision no peritoneal signs Extremities without edema Good range of motion all 4 extremities Skin normal turgor and tone no rashes No cervical supraclavicular or inguinal adenopathy Normal affect and behavior CT scan of the abdomen and pelvis reviewed on PACS agree with findings of distal small bowel obstruction, chronic gallbladder distention ascites Imaging Impressions Abdomen CT 12/16/17 22:46 Impression: 1. Partial small bowel obstruction. Diffuse bowel wall thickening in the distal ileum which could be infectious, inflammatory, or ischemic. Fecalization of stool in the distal ileum proximal to the anastomosis to colon. 2. Ascites worsened from November 2016 and increased peritoneal metastasis. 3. Stable nonspecific hypodense lesions in the liver. 4. Cholelithiasis. Results called and discussed with Candace Coy MD at 12/16/2017 23:42. Assessment/plan: Right colon cancer Likely recurrent cancer at anastomosis resulting in small bowel obstruction less likely due to adhesive bands. Would recommend conservative treatment at this point with possible oncology evaluation and change/review of treatment options. Excision of anastomosis, diverting ileostomy and bypass of ileum to transverse colon are options for surgical intervention. The risks of surgery include nonhealing, bowel injury as well as bleeding infection. The risks benefits and alternatives have been outlined with the patient all questions were addressed. Verbal confirmation of understanding of the plan and the risk of surgery was obtained. No NGT as stomach is not dilated. Serial exams. May have clears
[2017-12-17] MEDS ORDERED: GABAPENTIN 300 MG CAP PO SCH (09:00)
--- NOTE | 2017-12-17 10:06 | ASMTCMCOM ---
CM Note CM Note Notes: Patient admitted for abdominal pain and found to have a partial SBO. She has stage IV colon cancer and is followed at [facility]. She recently ended a course of chemo in November and was planning to start an oral regime soon. Surgery was consulted and recommended conservative treatment at this point. Oncology may also be consulted, and an order for ID was placed. Patient lives with her son Vinicius. She is normally independent in all ADLs. Case Management available for any discharge needs. Date Signed: 12/17/2017 10:05 AM Electronically Signed By:Samantha Roca RN
[2017-12-17 11:20] VITALS: BP 124/73; PULSE 87; TEMP 98.4; O2SAT 94
--- NOTE | 2017-12-17 11:31 | SOAPPROG ---
SOAP Progress Note Assessment/Plan: Assessment: ronna is well known to me with stage IV colon cancer - awaiting new chemo Admitted for increased abdominal pain - was dehydrated as well NG removed. feeling improved ?paracentesis prior to discharge Advance diet Plan: 12/17/17 11:28 12/17/17 11:39 Objective: Vital Signs Temp Pulse Resp BP Pulse Ox 36.9 C 87 16 124/73 H 94 12/17/17 11:09 12/17/17 11:09 12/17/17 11:09 12/17/17 11:09 12/17/17 11:09 Laboratory Results 12/17/17 04:57 12/17/17 04:57 12/16/17 12/17/17 12/18/17 05:59 05:59 05:59 Intake Total 475 Balance 475 ICD10 Worksheet Patient Problems: Problems Problem Status Onset Abdominal pain Acute Ascites, malignant Acute Partial small bowel obstruction Acute Bowel obstruction Acute
--- NOTE | 2017-12-17 12:57 | GCON ---
[f rep st] CONSULTATION REQUESTING PHYSICIAN: Dr. Donnell East. REASON FOR CONSULTATION: Patient known to [facility] with stage IV colon adenocarcinoma, admitted with par tial small-bowel obstruction. 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 She moved to [place] in December 2015 and previously received care in [place]. In 2013, she presented for r outine physical and some complaints of fatigue. She was found to have severe iron deficiency anemia. Colonoscopy revealed a tumor at the cecum. She underwent a partial colectomy in August 2014, whi ch revealed a 5.5 cm tumor with direct extension into the terminal ileum. Five of 7 lymph nodes were involved with the tumor. There was also small volume omental metastasis. She received FOLFOX and A vastin from September 2014 through March 2015. She then had intraperitoneal chemotherapy done in 2014. Unfortunately, her CEA began to rise and recent imaging showed evidence of recurrent dise ase. A PET-CT in 2015, showed in the central left pelvis, a soft tissue implant measuring 3.1 cm; le ft posterior anterior pelvis, 1.1 cm; right posterior pelvis, 1.9 cm; and additional implants in the right anterior pelvis up to 2 cm, as well as omental implants up to 1.4 cm. She developed some abdom inal swelling and ascites. She started on FOLFIRI and Zaltrap in December 2015. After 6 cycles, her scan showed considerable impro vement. After 20 cycles, she developed abdominal pain and vomiting. She was sent to the ED and diag nosed with small bowel obstruction. This resolved with conservative measures. She then developed hypertension, refractory to multiple medications, as well as proteinuria. Specifi keon, 3.9 g for 24 hours. This was attributed to Zaltrap, which was stopped, and she last had this in January 2017. She continued on irinotecan and 5-FU until recently, she developed progression. She is scheduled to start Lonsurf 60 mg twice daily on days 1 through 5 and 8 through 12, this next week. She was recently seen 2 weeks ago for chemo teaching. Yesterday, patient presented with abdominal pain. She developed abdominal pain at 3 p.m. on the day of admission. She noticed a few loose stools prior to this, but she stated loose consistency was nor mal for her. Over the course of the afternoon, pain worsened and she developed vomiting. She was ad mitted and imaging including a CT scan demonstrated partial small bowel obstruction, diffuse bowel wa ll thickening in the distal ileum, ascites worsened from November 2016, and increased peritoneal meta stasis. She had stable nonspecific hypodense lesions in the liver. She had a brief period of NG tube suction and patient reports her pain is completely gone this mornin g. Her abdominal x-ray this morning shows improved findings of partial small bowel obstruction. Pat ient continues to deny flatus or any bowel movement. She denies any fevers. Surgery has been consul monica and appreciate their recommendations. REVIEW OF SYSTEMS: As per HPI, otherwise negative. PAST MEDICAL HISTORY AND PAST SURGICAL HISTORY: As per HPI. Also had segmental resection of colon a nd regional lymphadenectomy in August 2014. History of left ovarian mass; this is a colon cancer m etastasis resected. Had a history of small bowel obstruction in November 2016, hypertension and prot einuria due to Zaltrap or VEGF inhibition. Colon cancer is KRAS mutated and mets to the peritoneum. The patient has also had anemia of chemotherapy. SOCIAL HISTORY: No tobacco, alcohol, or drugs. She is accompanied by her 2 sons today. ALLERGIES: Reviewed. MEDICATIONS: Reviewed in EMR. PHYSICAL EXAM: VITAL SIGNS: Show blood pressure 124/73, pulse of 87, respiration rate 16, saturatin g 94% on room air, temp is 36.9. GENERAL: She actually looks younger than her stated. No acute dis tress. HEENT: Anicteric. Oropharynx is clear. NECK: Supple. HEART: Regular rate and rhythm. L UNGS: Clear bilaterally. ABDOMEN: Moderately distended. Previous surgical scars noted and well-he aled. She is tender to palpation around the umbilicus, but no rebound. Bowel sounds are minimal. L OWER EXTREMITIES: No edema. NEUROLOGIC: Nonfocal. LABS: Have been reviewed, today show a white blood cell count of 7.9, hemoglobin 11.7, hematocrit 34 , platelet count of 181,000. Chemistry showed a total protein of 5.6, albumin of 3.4, LFTs are unrem arkable. Urine is essentially clear. ASSESSMENT AND PLAN: A very pleasant 67-year-old woman with stage IV adenocarcinoma of the colon, KR mutated, microsatellite stable, who was admitted for partial bowel obstruction. 1. Partial bowel obstruction. Seems to have, in large part, resolved. Definitely concerned that it could reoccur, but would agree with conservative management. I agree with Dr. Preciado that paracentes is may help prior to discharge or even before chemotherapy starts this next week and could certainly be arranged as an outpatient if cannot be done today, but I am hopeful when she starts the Lonsurf sh e will have tumor reduction and so will have decrease in ascites and decrease in tumor burden in the abdomen, hopefully making a bowel obstruction less likely in the near future. I have advanced her di et fully today and will monitor her for the next few hours. If she does well and has no vomiting, ca n send home. 2. Metastatic colorectal cancer. I believe she will now be on 3rd line therapy with Lonsurf and thi s is to be initiated next week and she will have followup with Dr. Isbell. 3. Nausea, vomiting, likely due to #1 and possibly some dehydration exacerbated things. 4. Hypertension per Internal Medicine. Continue to follow. About 30 minutes was spent with patient, more than 50% of the time counseling, coordinating care, and discussing with Dr. Preciado. Our team will continue to follow along if patient is not discharged to qi. /[id number]/MODL
--- NOTE | 2017-12-17 15:58 | PDDCSUM ---
Discharge Summary Discharge Summary: DISCHARGE DIAGNOSES: -acute abdominal pain resolved -suspected small-bowel obstruction versus other cause of her episode, resolved -ongoing malignant ascites accumulation with some increase in fluid from her last imaging and some mild increase in abdominal bloating but she is tolerating the symptoms well at the moment -stage IV colon cancer CONSULTANTS: Dr. Elizabeth Plascencia PROCEDURES: CT scan of abdomen pelvis HOSPITAL COURSE SUMMARY: This patient with known ongoing colon cancer with peritoneal metastases and ascites, returned from a trip to [place] 2 nights ago ended up having to spend the night sitting in the airport waiting area to get her connection here. She had nothing to eat or drink for about a day. Overnight here last night she developed an acute episode severe diffuse abdominal pain and bloating some vomiting. There is no fever no bleeding. The symptoms all resolved spontaneously here in the hospital but she was quite symptomatic requiring medication for symptoms as she arrived here. At this time she is feeling back to her usual which is with some mild abdominal bloating, eating well without nausea or pain, feeling somewhat tired. In the ER x-rays and CT abdomen were consistent with a possible partial small- bowel obstruction. There was improvement on a follow-up x-ray. There is also ascites present which is somewhat increased from her most recent imaging study. At this point the cause of her episode was probably a partial small-bowel obstruction, however symptoms related to her ascites, or altered bowel function related to the presence of peritoneal metastases other likely causes of this episode. She has recovered completely from the episode but at other episodes could occur at random time intervals. I reviewed with her that eating slowly in small frequent amounts, avoiding foods that cause bloating, and avoiding carbonated beverages will help. In addition she will want to avoid constipation and treat that aggressively the if it occurs. I did recommend keeping well hydrated and doing a lot of walking on a regular basis as preventive measures as well. We had a long discussion about the possibility that she will do much better if we keep her peritoneal fluid out. Given that she resolved this episode without removing her peritoneal fluid and that she is about to start a new chemotherapy I cannot confidently say that doing a paracentesis at this time would be remarkably helpful. I reviewed this with Dr. Elizabeth Plascencia and she agreed so we have not recommended paracentesis at this time and the patient is comfortable with that. I did review with the patient that it any time if she is having fevers, bleeding, or unremitting symptoms of pain or vomiting she will need to come into the hospital again. She is requesting to be discharged home and comfortable with that at this time but I am recommending that she see Dr. Isbell this coming week in the clinic. PENDING TEST RESULTS: None MEDICATION CHANGES: None FOLLOW-UP PLAN: With Dr. Isbell in Oncology Clinic later this week Greater than 35 minutes bedside and care coordination time today
== END 2017-12-17 16:59 | disposition home or self-care (01) ==
LOC: F3N 12-17 00:16
PROVIDERS: ADMIT Student in an Organized Health Care Education/Training Program; ATTEND Internal Medicine
DX: K56.600 Partial intestinal obstruction, unspecified as to cause (principal); R18.0 Malignant ascites; C78.6 Secondary malignant neoplasm of retroperitoneum and peritoneum; C18.9 Malignant neoplasm of colon, unspecified; I10 Essential (primary) hypertension; K80.20 Calculus of gallbladder without cholecystitis without obstruction; K76.9 Liver disease, unspecified
CPT/HCPCS: 74018; 74177; G0378; J1642; J2405; J3010; Q9967; 96374

== ENCOUNTER → 2018-03-01 | Outpatient (CLI) | payer OTHER ==
[~2018-03-01] MED LIST changes: +ALBUMIN 25% 100 ML SOLN IV ONE; -GADOBUTROL 10 ML VIAL IVP ONE; +LIDOCAINE 1% 300 MG/30 ML SDV ONE
== END ==
LOC: FIMAGING 13:15
PROVIDERS: ATTEND Physician Assistant
PROC: 0W9F3ZZ Drainage of Abdominal Wall, Percutaneous Approach (ICD-10-PCS; principal; 2018-03-01)
DX: R18.0 Malignant ascites (principal); C18.9 Malignant neoplasm of colon, unspecified
CPT/HCPCS: 49083; J1642; P9047